=== PATIENT | female | born 1970 | race Two or more races ===

== ENCOUNTER 2017-06-27 18:02 | Emergency (ER) | payer MEDICAID ==
[~2017-06-27] VITALS: Ht 160 cm; Wt 70.3 kg
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
[2017-06-27] MEDS ORDERED: KETOROLAC TROMETHAMINE INJ 60 MG/2 ML VIAL IM ONE ×2 (18:28→18:30)
[2017-06-27] MEDS ORDERED: DIAZEPAM 5 MG TABLET ONE (18:29)
[2017-06-27] MEDS ORDERED: DIAZEPAM 10 MG TABLET PO ONE (18:30)
[2017-06-27] MEDS ORDERED: HYDROCODONE/APAP 5/325MG 1 EACH TABLET PO ONE (19:00)
[2017-06-27] MEDS ORDERED: HYDROCODONE/APAP 5/325MG 1 EACH TABLET ONE (19:07)
[2017-06-27 19:30] VITALS: BP 112/74
--- NOTE | 2017-06-27 19:30 | NUR ---
Patient discharged to home in stable condition. Written and verbal after care instructions given. Patient verbalizes understanding of instruction.
== END 2017-06-27 19:32 | disposition home or self-care (01) ==
LOC: ER 18:04
DX: M54.5 Low back pain (principal); K21.9 Gastro-esophageal reflux disease without esophagitis; F41.9 Anxiety disorder, unspecified; G89.29 Other chronic pain; V43.52XA Car driver injured in collision with other type car in traffic accident, initial encounter; Y93.89 Activity, other specified; Y92.413 State road as the place of occurrence of the external cause; Y99.8 Other external cause status
CPT/HCPCS: 72100-TC; A4606; J1885; Z7610